=== PATIENT | female | born 1950 | race Caucasian/White ===

== ENCOUNTER → 2018-02-05 | Outpatient (REF) | LOC: ZLAB.WCH 17:55 | DX: Z01.89 Encounter for other specified special examinations (principal) ==

== ENCOUNTER 2018-09-20 15:45 | Outpatient (RCR) | payer MEDICARE, OTHER | END 2018-11-14 | disposition home or self-care (01) | LOC: WSPT | DX: I89.0 Lymphedema, not elsewhere classified (principal); M79.605 Pain in left leg; E66.9 Obesity, unspecified | CPT/HCPCS: G8978-GP; G8979-GP ==

== ENCOUNTER 2019-09-30 08:00 | Outpatient (RCR) | payer MEDICARE, OTHER | END 2019-10-30 | disposition home or self-care (01) | LOC: WSOT | DX: Z47.1 Aftercare following joint replacement surgery (principal); Z96.692 Finger-joint replacement of left hand ==